=== PATIENT | male | born 1945 | race Caucasian/White ===

== ENCOUNTER 2017-03-13 12:13 | Inpatient (IN) | payer MEDICARE ==
[~2017-03-13] VITALS: Ht 180.3 cm; Wt 70.5 kg
[2017-03-13] MEDS ORDERED: PLEASE ENTER HEIGHT AND WEIGHT MC SCH (13:30)
[2017-03-13] MEDS ORDERED: ONDANSETRON ODT 4 MG PO PRN (13:30)
[2017-03-13] MEDS ORDERED: ONDANSETRON 2MG/ML, 2ML IVPush PRN (13:30)
[2017-03-13] MEDS ORDERED: PLEASE ENTER ALLERGIES MC SCH ×2 (13:30)
[2017-03-13 14:57] VITALS: BP 164/87
[2017-03-13 16:11] LABS: ASPARTATE AMINO TRANSFERASE 27 U/L (15-37); BLOOD UREA NITROGEN 6 mg/dL (7-18)
[2017-03-13] MEDS: CEFTRIAXONE PMX 1GM/50ML 50 ML IV SCH (17:45)
[2017-03-13] MEDS: D5%-0.9% NACL 1,000 ML IV SCH (18:20)
[2017-03-13] MEDS: METRONIDAZOLE PMX 500MG/100ML 100 ML IV SCH ×2 (18:33→23:39)
[2017-03-13 19:03] VITALS: BP 149/82
[2017-03-14 04:02] VITALS: BP_SYST 190; BP_SYST 191; BP_DIAS 74; BP_DIAS 92
[2017-03-14] MEDS: LABETALOL 5MG/ML, 20ML IVPush PRN (04:08)
[2017-03-14] MEDS: D5%-0.9% NACL 1,000 ML IV SCH ×2 (06:00→14:09)
[2017-03-14] MEDS ORDERED: BUPIVACAINE/PF-EPI 0.5% 1:200K ONE (06:41)
[2017-03-14] MEDS: SENNA/DOCUSATE TABLET PO SCH (08:01)
[2017-03-14] MEDS ORDERED: FENTANYL PF 250 MCG/5ML ONE (08:34)
[2017-03-14 08:59] VITALS: BP 151/85
[2017-03-14] MEDS: METRONIDAZOLE PMX 500MG/100ML 100 ML IV SCH ×2 (09:08→16:48)
[2017-03-14] MEDS ORDERED: GLYCOPYRROLATE 0.2MG/1ML ONE (09:48)
[2017-03-14] MEDS ORDERED: ROCURONIUM 10 MG/ML ONE (09:48)
[2017-03-14] MEDS ORDERED: PROPOFOL 10 MG/ML, 20ML ONE (09:48)
[2017-03-14] MEDS ORDERED: CEFOTETAN 2 GM ONE (09:48)
[2017-03-14] MEDS ORDERED: NEOSTIGMINE 1 MG/ML, 10ML ONE (09:48)
[2017-03-14] MEDS ORDERED: LABETALOL 5MG/ML, 20ML IV PRN (10:00)
[2017-03-14] MEDS ORDERED: ONDANSETRON 2MG/ML, 2ML IVPush PRN (10:00)
[2017-03-14] MEDS ORDERED: PROMETHAZINE 25 MG/ML, 1ML IV PRN (10:00)
[2017-03-14] MEDS ORDERED: hydrALAzine 20 MG/ML, 1ML IV PRN (10:00)
[2017-03-14] MEDS ORDERED: OXYcodone 5 MG/5 ML ORAL.SOL UDC PO PRN (10:00)
[2017-03-14] MEDS ORDERED: MEPERIDINE/PF 25MG/0.5ML IVPush PRN (10:00)
[2017-03-14] MEDS ORDERED: HYDROmorphone 1 MG/ML, 1ML IV PRN (10:00)
[2017-03-14] MEDS ORDERED: OMNIPAQUE 350 MG/ML, 50 ML BOTTLE IV ONE (11:17)
[2017-03-14] MEDS ORDERED: OMNIPAQUE 350 MG/ML, 50 ML BOTTLE ONE (11:29)
[2017-03-14] MEDS ORDERED: FENTANYL PF 100 MCG/2ML ONE (11:39)
[2017-03-14] MEDS ORDERED: OXYcodone 5 MG/5 ML ORAL.SOL UDC ONE (11:39)
[2017-03-14] MEDS: FENTANYL PF 100 MCG/2ML IV PRN ×2 (12:10→12:25)
[2017-03-14 13:00] VITALS: BP 154/83
[2017-03-14] MEDS: CEFTRIAXONE PMX 1GM/50ML 50 ML IV SCH (17:59)
[2017-03-14 19:32] VITALS: BP 165/81
[2017-03-14] MEDS: LISINOPRIL 20 MG TABLET PO SCH (19:56)
[2017-03-14 23:47] VITALS: BP 167/90
[2017-03-15] VITALS (7 sets, daily range): BP systolic 148–195; BP diastolic 83–96
[2017-03-15] MEDS: METRONIDAZOLE PMX 500MG/100ML 100 ML IV SCH ×3 (00:06→16:57)
[2017-03-15] MEDS: D5%-0.9% NACL 1,000 ML IV SCH ×2 (00:06→11:47)
[2017-03-15] MEDS: LABETALOL 5MG/ML, 20ML IVPush PRN (01:49)
[2017-03-15 06:15] LABS: ASPARTATE AMINO TRANSFERASE 57 U/L (15-37); BLOOD UREA NITROGEN 3 mg/dL (7-18)
[2017-03-15] MEDS: morphine SULFATE 10 MG/ML, 1ML IVPush PRN ×3 (08:55→14:39)
[2017-03-15] MEDS: SENNA/DOCUSATE TABLET PO SCH (08:56)
[2017-03-15] MEDS: LISINOPRIL 20 MG TABLET PO SCH ×2 (09:00→20:27)
[2017-03-15] MEDS: CEFTRIAXONE PMX 1GM/50ML 50 ML IV SCH (17:55)
[2017-03-15] MEDS: TAMSULOSIN 0.4 MG CAP.ER.24H PO SCH (18:01)
[2017-03-15 20:02] LABS: BLOOD UREA NITROGEN 3 mg/dL (7-18)
[2017-03-15 20:06] LABS: ASPARTATE AMINO TRANSFERASE 56 U/L (15-37)
[2017-03-16] MEDS: METRONIDAZOLE PMX 500MG/100ML 100 ML IV SCH ×4 (00:22→21:01)
[2017-03-16 02:18] VITALS: BP 181/89
[2017-03-16] MEDS: LABETALOL 5MG/ML, 20ML IVPush PRN (02:22)
[2017-03-16] MEDS ORDERED: DOCU-30 PO (03:27)
[2017-03-16] MEDS ORDERED: HYDR-883 PO (03:27)
[2017-03-16] MEDS ORDERED: ONDA4TAB7 PO (03:28)
[2017-03-16 03:59] VITALS: BP 179/83
[2017-03-16 07:09] VITALS: BP 168/90
[2017-03-16] MEDS ORDERED: POTASSIUM CHLORIDE 20 MEQ in SODIUM CHLORIDE 0.9% 250 ML IV ONE (09:00)
[2017-03-16] MEDS ORDERED: FENTANYL PF 100 MCG/2ML ONE (09:05)
[2017-03-16 09:11] LABS: ASPARTATE AMINO TRANSFERASE 41 U/L (15-37); BLOOD UREA NITROGEN 2 mg/dL (7-18)
[2017-03-16] MEDS ORDERED: ROCURONIUM 10 MG/ML ONE (09:47)
[2017-03-16] MEDS ORDERED: PROPOFOL 10 MG/ML, 20ML ONE (09:47)
[2017-03-16] MEDS ORDERED: SUCCINYLCHOLINE 20 MG/ML, 10ML ONE (09:47)
[2017-03-16] MEDS ORDERED: OMNIPAQUE 350 MG/ML, 50 ML BOTTLE ONE (09:55)
[2017-03-16] MEDS: LISINOPRIL 20 MG TABLET PO SCH ×3 (13:01→21:01)
[2017-03-16] MEDS: TAMSULOSIN 0.4 MG CAP.ER.24H PO SCH ×2 (13:02→16:19)
[2017-03-16] MEDS: SENNA/DOCUSATE TABLET PO SCH ×2 (13:02→13:17)
[2017-03-16 13:48] VITALS: BP 172/89
[2017-03-16] MEDS ORDERED: HYDROcodone/APAP 5/325 TABLET PO PRN (14:30)
[2017-03-16] MEDS ORDERED: HYDROcodone/APAP 5/325 TABLET ONE (14:36)
[2017-03-16] MEDS ORDERED: ENOXAPARIN 40 MG/0.4 ML SQ SCH (17:00)
[2017-03-16] MEDS: CEFTRIAXONE PMX 1GM/50ML 50 ML IV SCH (17:56)
[2017-03-16] MEDS ORDERED: D5%-0.9% NACL 1,000 ML IV SCH (18:40)
[2017-03-16] MEDS ORDERED: POTASSIUM CHLORIDE 20 MEQ TAB.ER.PRT PO ONE (19:00)
[2017-03-16 19:28] VITALS: BP 149/86
[2017-03-17 00:20] VITALS: BP 184/75
[2017-03-17] MEDS: LABETALOL 5MG/ML, 20ML IVPush PRN (00:27)
[2017-03-17 02:33] VITALS: BP 169/88
[2017-03-17] MEDS: METRONIDAZOLE PMX 500MG/100ML 100 ML IV SCH ×2 (05:17→13:00)
[2017-03-17 06:59] VITALS: BP 186/90
[2017-03-17] MEDS: SENNA/DOCUSATE TABLET PO SCH (08:36)
[2017-03-17] MEDS: TAMSULOSIN 0.4 MG CAP.ER.24H PO SCH (08:36)
[2017-03-17] MEDS: LISINOPRIL 20 MG TABLET PO SCH (08:36)
[2017-03-17] MEDS ORDERED: ENALAPRILAT 1.25 MG/ML, 2ML IV PRN (09:00)
[2017-03-17 09:31] LABS: BLOOD UREA NITROGEN 4 mg/dL (7-18)
[2017-03-17 09:36] LABS: ASPARTATE AMINO TRANSFERASE 45 U/L (15-37)
[2017-03-17] MEDS ORDERED: POTASSIUM CHLORIDE 20 MEQ TAB.ER.PRT PO ONE (12:00)
[2017-03-17] MEDS ORDERED: TAMS-11 PO (12:32)
[2017-03-17 12:46] VITALS: BP 176/88
[2017-03-17 14:28] VITALS: BP 159/80
[2017-03-17] MEDS ORDERED: LISI-170 PO (14:29)
[2017-03-17] MEDS ORDERED: CIPR500T3 PO (15:46)
[2017-03-17] MEDS ORDERED: METR500T PO (15:46)
== END 2017-03-17 17:10 | disposition home or self-care (01) | DRG 853 ==
LOC: 4NOR 12:13 → DCLOUNGE 03-17 15:10
PROVIDERS: ADMIT Hospitalist; ATTEND Hospitalist
PROC: 0FT44ZZ Resection of Gallbladder, Percutaneous Endoscopic Approach (ICD-10-PCS; principal; 2017-03-14 10:00)
PROC: 0F798ZZ Dilation of Common Bile Duct, Via Natural or Artificial Opening Endoscopic (ICD-10-PCS; 2017-03-16)
PROC: BF131ZZ Fluoroscopy of Gallbladder and Bile Ducts using Low Osmolar Contrast (ICD-10-PCS; 2017-03-16)
DX: A41.9 Sepsis, unspecified organism (principal); K83.1 Obstruction of bile duct; E44.1 Mild protein-calorie malnutrition; E87.1 Hypo-osmolality and hyponatremia; E11.9 Type 2 diabetes mellitus without complications; E83.39 Other disorders of phosphorus metabolism; F03.90 Unspecified dementia, unspecified severity, without behavioral disturbance, psychotic disturbance, mood disturbance, and anxiety; I10 Essential (primary) hypertension; K21.9 Gastro-esophageal reflux disease without esophagitis; Z66 Do not resuscitate; K81.1 Chronic cholecystitis; Z90.49 Acquired absence of other specified parts of digestive tract; Z91.012 Allergy to eggs; Z82.49 Family history of ischemic heart disease and other diseases of the circulatory system; Z83.3 Family history of diabetes mellitus; Z68.21 Body mass index [BMI] 21.0-21.9, adult
CPT/HCPCS: 36415; 74181; 74300; 74328; 80053; 82247; 82248; 83690; 83735; 84100; 84439; 85025; 85610; 87040; 88304; 93005; J0696; J1650; J2704; J2710; J3010; J3480; J3490; J7042; Q9967; J0330; J2270; J7050; S0074